=== PATIENT | male | born 1950 | race Caucasian/White ===

== ENCOUNTER 2021-05-06 08:05 | Outpatient (CLI) | payer OTHER ==
[2021-05-06 09:45] LABS: ALANINE AMINOTRANSFERASE 27 U/L (12-78); ALBUMIN 4.1 g/dL (3.4-5.0); CALCIUM 9.2 mg/dL (8.5-10.1); CREATININE 0.92 mg/dL (0.7-1.3)
[2021-05-06 09:48] LABS: ALKALINE PHOSPHATASE 45 U/L (45-117); BILIRUBIN,TOTAL 0.6 mg/dL (0.2-1.0); TOTAL PROTEIN 7.6 g/dL (6.4-8.2)
[2021-05-06 09:55] LABS: BASOPHILS % (AUTO) 1 % (0-1); EOSINOPHILS % (AUTO) 2 % (1-7); LYMPHOCYTES % (AUTO) 29 % (22-44); MEAN PLATELET VOLUME 7.4 fL (7.4-10.4); MONOCYTES % (AUTO) 6 % (2-9); NEUTROPHILS % (AUTO) 63 % (42-75); PLATELET COUNT 187 x10^3/uL (130-400); RED BLOOD COUNT 4.97 x10^6/uL (4.38-5.82); RED CELL DISTRIBUTION WIDTH 13.4 % (9.4-14.8)
[2021-05-06 10:11] LABS: ANION GAP 7 mmol/L (5-15); CHLORIDE 103 mmol/L (98-107)
[2021-05-06] MEDS ORDERED: GLUC500T11 PO (10:20)
[2021-05-06] MEDS ORDERED: CHOL100011 PO (10:20)
[2021-05-06] MEDS ORDERED: GLIM4TAB8 PO (10:20)
[2021-05-06] MEDS ORDERED: MILK175T PO (10:20)
[2021-05-06] MEDS ORDERED: SAW450CA7 PO (10:20)
[2021-05-06] MEDS ORDERED: [UNRECOGNIZED DRUG - CODE] PO (10:20)
[2021-05-06] MEDS ORDERED: TURM500C4 PO (10:20)
[2021-05-06] MEDS ORDERED: CINN500C2 PO (10:20)
[2021-05-06] MEDS ORDERED: LISI-167 PO (10:20)
[2021-05-06] MEDS ORDERED: ZINC50CA PO (10:20)
[2021-05-06] MEDS ORDERED: M-171CAP PO (10:20)
[2021-05-06] MEDS ORDERED: METF10007 PO (10:20)
[2021-05-06] MEDS ORDERED: TADA5TAB2 PO (10:20)
== END 2021-05-06 23:59 | disposition home or self-care (01) ==
LOC: STAR 08:05
PROVIDERS: ATTEND Orthopaedic Surgery
DX: Z01.818 Encounter for other preprocedural examination (principal); M16.12 Unilateral primary osteoarthritis, left hip
CPT/HCPCS: 36415; 80053; 85025; 87081; 93005

== ENCOUNTER 2021-05-07 05:38 | Day surgery (SDC) | payer OTHER ==
[~2021-05-07] VITALS: Ht 177.8 cm; Wt 100.9 kg
[~2021-05-07 05:38] MED LIST: CHOL100011 PO; CINN500C2 PO; GLIM4TAB8 PO; GLUC500T11 PO; LISI-167 PO; M-171CAP PO; METF10007 PO; MILK175T PO; SAW450CA7 PO; TADA5TAB2 PO; TURM500C4 PO; ZINC50CA PO; [UNRECOGNIZED DRUG - CODE] PO
[2021-05-07] MEDS ORDERED: KETOROLAC 60 MG/2 ML ONE (06:12)
[2021-05-07] MEDS ORDERED: TRANEXAMIC ACID 100 MG/ML, 10ML ONE (06:13)
[2021-05-07] MEDS ORDERED: SODIUM CHLORIDE 0.9% 50 ML ONE (06:13)
[2021-05-07] MEDS ORDERED: EPINEPHRINE 1 MG/ML, 1ML ONE (06:13)
[2021-05-07] MEDS ORDERED: morphine SULFATE/PF 1 MG/ML, 10ML ONE (06:13)
[2021-05-07] MEDS ORDERED: ROPIvacaine/PF 0.2%, 20 ML ONE (06:13)
[2021-05-07 06:20] VITALS: BP 130/78
[2021-05-07] MEDS ORDERED: LACTATED RINGERS 1,000 ML IV SCH (06:30)
[2021-05-07] MEDS ORDERED: CHLORHEXIDINE 15 ML UDC PO ONE (06:30)
[2021-05-07] MEDS ORDERED: MIDAZOLAM 1 MG/ML, 2ML ONE (06:50)
[2021-05-07] MEDS ORDERED: FENTANYL PF 250 MCG/5ML ONE (06:56)
[2021-05-07] MEDS ORDERED: VANCOMYCIN 1,000 MG ONE (07:29)
[2021-05-07] MEDS ORDERED: PROPOFOL 10 MG/ML, 20ML ONE (07:59)
[2021-05-07] MEDS ORDERED: LIDOCAINE-MPF 2% ,5ML ONE (07:59)
[2021-05-07] MEDS ORDERED: GLYCOPYRROLATE 0.2MG/1ML, 5ML ONE (07:59)
[2021-05-07] MEDS ORDERED: DEXAMETHASONE 4 MG/ML, 1ML ONE (07:59)
[2021-05-07] MEDS ORDERED: ONDANSETRON 2MG/ML, 2ML ONE (07:59)
[2021-05-07] MEDS ORDERED: ROCURONIUM 10MG/ML,5ML ONE (07:59)
[2021-05-07] MEDS ORDERED: NEOSTIGMINE 1 MG/ML, 10ML ONE (07:59)
[2021-05-07] MEDS ORDERED: CEFAZOLIN 1,000 MG ONE (07:59)
[2021-05-07] MEDS ORDERED: METHOCARBAMOL 1,000 MG in DEXTROSE 5% 100 ML IV PRN (08:00)
[2021-05-07] MEDS ORDERED: LORazepam 2 MG/ML, 1ML IVPush PRN (08:00)
[2021-05-07] MEDS ORDERED: LABETALOL 5MG/ML, 20ML IV PRN (08:00)
[2021-05-07] MEDS ORDERED: MEPERIDINE/PF 25MG/0.5ML IVPush PRN (08:00)
[2021-05-07] MEDS ORDERED: HYDROmorphone 1 MG/ML, 1ML INJ IVPush PRN (08:00)
[2021-05-07] MEDS ORDERED: hydrALAzine 20 MG/ML, 1ML IV PRN (08:00)
[2021-05-07] MEDS ORDERED: PROMETHAZINE 25 MG/ML, 1ML IVPush PRN (08:00)
[2021-05-07] MEDS ORDERED: ALBUTEROL SULFATE 2.5 MG/3 ML NPPB PRN (08:00)
[2021-05-07] MEDS ORDERED: ACETAMINOPHEN 325 MG TABLET PO PRN (08:00)
[2021-05-07] MEDS ORDERED: FENTANYL PF 100 MCG/2ML ONE (08:38)
[2021-05-07] MEDS ORDERED: ACETAMINOPHEN 650 MG/20.3 ML UDC ONE (08:38)
[2021-05-07] MEDS ORDERED: OXYcodone 5 MG/5 ML ORAL.SOL UDC ONE ×2 (08:38→09:51)
[2021-05-07] MEDS: OXYcodone 5 MG/5 ML ORAL.SOL UDC PO PRN ×2 (08:41→09:51)
[2021-05-07] MEDS: FENTANYL PF 100 MCG/2ML IV PRN ×2 (08:43→08:57)
== END 2021-05-07 12:25 | disposition home or self-care (01) ==
LOC: OUT 05:38
PROVIDERS: ATTEND Orthopaedic Surgery
DX: M16.11 Unilateral primary osteoarthritis, right hip (principal); E11.9 Type 2 diabetes mellitus without complications; I10 Essential (primary) hypertension; E66.9 Obesity, unspecified; Z79.899 Other long term (current) drug therapy; Z88.0 Allergy status to penicillin
CPT/HCPCS: 27130; 36415; 82962; 86850; 86900; 97110; 97161; C1713; C1776; J0171; J0690; J1100; J1885; J2250; J2274; J2405; J2704; J2710; J2795; J2800; J3010; J3370; J7120